=== PATIENT | male | born 1985 | race Caucasian/White ===

== ENCOUNTER 2024-12-02 18:22 | Emergency (ER) | payer OTHER ==
[~2024-12-02] VITALS: Ht 170.2 cm; Wt 95.4 kg
[2024-12-02] MEDS ORDERED: METH4PAK PO (19:36)
--- NOTE | 2024-12-02 19:40 | ED.PDOC ---
Back pain HPI HPI Comments Pt presents to the ER with C/O left elbow pain x1 week. Pt denies trauma/ injury to site. Pt reports he notice swelling and hot to touch xtoday. Pt states increased pain with full extension and pain when he bends arm. Chief Complaint: Upper Extremity Time Seen by MD: 18:29 Primary Care Provider: N/A Reviewed Notes: Nurses Notes, Medications, Allergies Allergies: Uncoded Allergies: PCN (Allergy, Unknown, 12/02/24) Information Source: Patient Mode of Arrival: Ambulatory Past Medical History PAST MEDICAL HISTORY: Denies Surgical History: Denies all surgeries Family History Family History: No family hx of HTN, Unknown Social History Smoker: Non-Smoker Lives In: Home All Other Systems: Reviewed and Negative (see hpi ) Physical Exam General Appearance: No Apparent Distress, Normal HEENT: Pharynx Normal Neck: Full Range of Motion, Non-Tender Respiratory: Lungs Clear, No Respiratory Distress, Normal Breath Sounds Cardiovascular: No Murmur, Normal Peripheral Pulses, Regular Rate/Rhythm Breast Exam: Deferred Gastrointestinal: Non Tender, Soft Genitalia: Deferred Pelvic: Deferred Rectal: Deferred Extremities: Normal capillary refill, Normal range of motion Musculoskeletal : Location: Left Extremity Location: Elbow (Moderate tenderness palpated over left elbow trace edema no noted erythema or open lesions. Strength sensory intact positive radial pulse.) Apperance: Normal Neurologic: Alert, No Motor Deficits, Normal Affect, Normal Mood, No Sensory Deficits Cerebellar Function: Normal Reflexes: Normal Skin: Dry, Normal Color, Warm Lymphatic: No Adenopathy Was a procedure done? Was a procedure done?: No Back Pain Differential Dx Differential Diagnosis: Fracture, Musculoskeletal Pain X-Ray, Labs, Meds, VS Vital Signs Date Time Temp Pulse Resp B/P (MAP) Pulse Ox O2 Delivery O2 Flow Rate FiO2 12/02/24 18:24 98.1 98 16 178/104 63 98.1 X-Ray, Labs, Meds, VS Comment X-ray shows no acute fractures osseous lesions or dislocations. Likely tennis elbow. Advised to use splint/brace paper shunt has a home script trial of Medrol Dosepak advised to rest ice elevate follow up with his PCP in 2-3 days as necessary no improvement consider MRI. Patient indicates understanding and agrees with discharge plan of care Time of 1ST Reevaluation: 18:40 Reevaluation 1ST: Unchanged Time of 2ND Reevaluation: 19:36 Reevaluation 2ND: Improved Patient Education/Counseling: Diagnosis, Treatment, Prognosis, Need For Follow Up Family Education/Counseling: No Family Present SEPSIS Sepsis Screen Date sepsis recognized/suspect: Dec 02, 2024 Time Sepsis recognized/suspect: 1823 Recent Procedure: No On Antibiotic Therapy: No Respiratory Rate >20: No Heart Rate >90: No Temp<36 C (96.8 F) or >38.3 C: No SBP <90 or MAP <65 mmHG: No New Acute Mental Status Change: No Is the patient on CPAP, BIPAP,: No Physician Orders L Elbow 3 View Xray (12/02/24 18:35) Vital Signs Date Time Temp Pulse Resp B/P (MAP) Pulse Ox O2 Delivery O2 Flow Rate FiO2 12/02/24 18:24 98.1 98 16 178/104 63 98.1 Departure 1 Departure Time of Disposition: 19:34 Impression: Primary Impression: Left tennis elbow Disposition: 01 HOME / SELF CARE / HOMELESS Condition: Stable e-Prescriptions Methylprednisolone (Medrol Dosepak) 4 Mg Ousmane 4 MG PO UD for 6 Days, #21 TAB UAD Prov: MARGOTH MCKEON 12/02/24 Discharged With: Self Critical Care Note Critical Care Time?: No Stability Stability form required: MARGOTH Dougherty Dec 02, 2024 19:40
[2024-12-02 20:18] VITALS: BP 131/89; PULSE 65; RESP 20; TEMP 98.6; O2SAT 97
[2024-12-02] MEDS: KETOROLAC TROMETH 60MG/2ML VIAL IM ONE (20:22)
--- NOTE | 2024-12-02 20:23 | DVH ---
CLINICAL INDICATION: pain and swelling TECHNIQUE: XY L ELBOW 3 VIEW XRAY Comparison: None FINDINGS/IMPRESSION: : There is no evidence of acute fracture or dislocation. Enthesophyte at the posterior olecranon. Overlying soft tissues are intact. No joint effusion.
== END 2024-12-02 20:27 | disposition home or self-care (01) ==
LOC: ER 18:22
DX: M77.12 Lateral epicondylitis, left elbow (principal)
CPT/HCPCS: 73080; 96372; 99284; J1100; J1885